=== PATIENT | male | born 1950 | race Caucasian/White ===

== ENCOUNTER 2021-04-24 15:00 | Outpatient (CLI) | payer MEDICARE ==
[2020-02-16 13:47] LABS: SARS-CoV-2 MS2 Positive; SARS-CoV-2 N Gene Negative; SARS-CoV-2 S Gene Negative; SARS-CoV-2 by NAA Not Detected (NotDetected); SARS-CoV-2 orf1ab Negative
[2021-04-25 13:04] LABS: SARS-CoV-2 PCR by NAA Not Detected (NotDetected)
== END 2021-04-24 15:01 | disposition home or self-care (01) ==
LOC: CSHLAB 15:00
PROVIDERS: ATTEND Internal Medicine Gastroenterology
DX: Z20.822 Contact with and (suspected) exposure to COVID-19 (principal); K63.5 Polyp of colon
CPT/HCPCS: U0003; U0005

== ENCOUNTER 2021-04-27 08:55 | Day surgery (SDC) | payer MEDICARE ==
[2021-04-25 13:49] VITALS: BMI 35.4
[2021-04-27] MEDS ORDERED: Lidocaine 1% MPF 2 ML VIAL ONE (09:08)
[2021-04-27] MEDS ORDERED: Lidocaine 1% PF 5 ML VIAL ONE (09:45)
[2021-04-27] MEDS ORDERED: PROPOFOL 20 ML ONE ×2 (09:49→10:19)
== END 2021-04-27 11:59 | disposition home or self-care (01) ==
LOC: CSHSDC 08:55
PROVIDERS: ATTEND Internal Medicine Gastroenterology
PROC: 0DBN8ZZ Excision of Sigmoid Colon, Via Natural or Artificial Opening Endoscopic (ICD-10-PCS; principal; 2021-04-27)
DX: Z12.11 Encounter for screening for malignant neoplasm of colon (principal); D17.5 Benign lipomatous neoplasm of intra-abdominal organs; K57.30 Diverticulosis of large intestine without perforation or abscess without bleeding; K64.9 Unspecified hemorrhoids; Z86.010 Personal history of colon polyps; I48.91 Unspecified atrial fibrillation; G47.30 Sleep apnea, unspecified
CPT/HCPCS: 88305; J2704

== ENCOUNTER 2023-01-01 16:39 | Emergency (ER) | payer MEDICARE ==
[2023-01-01 17:56] LABS: #Eosinphils 0.2 10x3/uL (0.0-0.5); #Monocytes 1.2 10x3/uL (0.0-1.1); %Basophils 0.4 % (0.0-2.0); %Lymphocytes 24.3 % (18.0-47.0); %Monocytes 13.8 % (0.0-10.0); %Neutrophils 59.3 % (40.0-75.0); Hemoglobin 14.3 g/dL (13.5-17.5); Mean Corpuscular HGB CONC 32.9 g/dL (32.0-36.0); Mean Corpuscular Hemoglobin 28.9 pg (27.0-33.0); Mean Corpuscular Volume 87.7 fl (81.2-95.1); Mean Platelet Volume 10.7 fl (7.4-10.4); Platelet Count 174 10x3/uL (150-450); Red Blood Cell (RBC) Count 4.95 10x6/uL (4.32-5.72); White Blood Cell (WBC) Count 8.5 10x3/uL (3.5-10.5)
[2023-01-01 18:03] LABS: Bilirubin Neg (Negative); Blood, Urine 10 (Negative); Clarity Clear (Clear); Glucose, Urine (Dipstick) Normal (Negative); Ketone, Urine Negative (Negative); Leukocyte Negative (Negative); Nitrite Negative (Negative); Protein, Urine (Dipstick) 30 mg/dl (Neg-Trace); Urobilinogen Normal mg/dL (Less than 2)
[2023-01-01 18:06] LABS: Anion Gap 17 mmol/L (10-20); BUN (Urea Nitrogen) 21 mg/dL (8.4-25.7); Calc. Creatinine Clearance 0 mL/min (70-130); Carbon Dioxide 21 mmol/L (23-31); Chloride 106 mmol/L (98-107); Potassium 4.3 mmol/L (3.5-5.1); Sodium 140 mmol/L (136-145)
[2023-01-01 18:07] LABS: ALT (SGPT) 40 U/L (8-55); AST (SGOT) 66 U/L (5-34); Albumin 4.2 g/dL (3.4-4.8); Alkaline Phosphatase 47 U/L (40-110); Bilirubin, Total 0.6 mg/dL (0.2-1.2); Calcium 8.7 mg/dL (7.8-10.44); Estimated GFR 63; Globulin 3.1 g/dL (2.4-3.5); Glucose 83 mg/dL (83-110); Lipase 32 U/L (8-78); Protein, Total 7.3 g/dL (5.8-8.1)
[2023-01-01 18:12] LABS: RBC/HPF 0-3 HPF (0-3); Squamous Epithelial 0-3 HPF (0-3)
[2023-01-01 18:20] LABS: Bacteria/HPF 2+ HPF (None Seen); Mucous/LPF 2+ LPF (<2+)
[2023-01-01 18:26] LABS: White Blood Cell Cast 0-3 LPF (None Seen)
[2023-01-02 07:50] LABS: Epithelial Cast 0-3 LPF (None Seen)
== END 2023-01-01 19:37 | disposition home or self-care (01) ==
LOC: CSHERS 16:39
DX: K52.9 Noninfective gastroenteritis and colitis, unspecified (principal); E78.00 Pure hypercholesterolemia, unspecified; I10 Essential (primary) hypertension; I48.91 Unspecified atrial fibrillation
CPT/HCPCS: 71045; 80053; 80503; 81003; 81015; 83690; 84484; 85025; 96360; 96361

== ENCOUNTER 2024-06-10 10:55 | Outpatient (CLI) | payer MEDICARE | END 2024-06-10 10:56 | disposition home or self-care (01) | LOC: CSHRAD 10:55 | PROVIDERS: ATTEND Internal Medicine Cardiovascular Disease | DX: R06.02 Shortness of breath (principal); R06.00 Dyspnea, unspecified | CPT/HCPCS: 71046 ==